=== PATIENT | female | born 1975 | race Caucasian/White ===

== ENCOUNTER 2018-08-30 05:37 | Day surgery (SDC) | payer OTHER ==
[~2018-08-30] VITALS: Ht 162.6 cm; Wt 88.0 kg
[~2018-08-30 05:37] MED LIST: NONE PER PT
[2018-08-30] MEDS ORDERED: LACTATED RINGERS 1,000 ML IV SCH ×2 (06:53→08:57)
[2018-08-30] MEDS ORDERED: METOCLOPRAMIDE 10MG TABLET PO ONE (07:00)
[2018-08-30] MEDS ORDERED: LIDOCAINE-MPF 1%, 2ML INFIL ONE (07:00)
[2018-08-30] MEDS ORDERED: FAMOTIDINE 20 MG TABLET PO ONE (07:00)
[2018-08-30] MEDS ORDERED: SCOPOLAMINE PATCH, 1.5MG PATCH.TD72 TD ONE (07:00)
[2018-08-30] MEDS ORDERED: GABAPENTIN 300 MG CAPSULE PO ONE (07:00)
[2018-08-30] MEDS ORDERED: ACETAMINOPHEN 500 MG TABLET PO ONE (07:00)
[2018-08-30 07:12] LABS: HCG UR SG 1.004 (1.003-1.030)
[2018-08-30] MEDS ORDERED: FENTANYL PF 250 MCG/5ML ONE (07:12)
[2018-08-30] MEDS ORDERED: MIDAZOLAM 1 MG/ML, 2ML ONE (07:12)
[2018-08-30] MEDS ORDERED: BUPIVACAINE 0.25% ONE (07:13)
[2018-08-30] MEDS ORDERED: EPINEPHRINE 1 MG/ML, 1ML ONE (07:13)
[2018-08-30] MEDS ORDERED: PROPOFOL 50 ML ONE (07:42)
[2018-08-30] MEDS ORDERED: OXYcodone 5 MG/5 ML ORAL.SOL UDC PO PRN (08:30)
[2018-08-30] MEDS ORDERED: ALBUTEROL SULFATE 2.5 MG/3 ML NPPB PRN (08:30)
[2018-08-30] MEDS ORDERED: SODIUM CHLORIDE 0.9% PF 10ML ONE (08:30)
[2018-08-30] MEDS ORDERED: PROMETHAZINE 25 MG/ML, 1ML IV PRN (08:30)
[2018-08-30] MEDS ORDERED: HYDROmorphone 2 MG/ML, 1ML IVPush PRN (08:30)
[2018-08-30] MEDS ORDERED: ROCURONIUM 10MG/ML,5ML ONE (08:30)
[2018-08-30] MEDS ORDERED: PROPOFOL 10 MG/ML, 20ML ONE ×2 (08:30)
[2018-08-30] MEDS ORDERED: LIDOCAINE-MPF 2% ,5ML ONE (08:30)
[2018-08-30] MEDS ORDERED: MEPERIDINE/PF 25MG/0.5ML IVPush PRN (08:30)
[2018-08-30] MEDS ORDERED: ONDANSETRON 2MG/ML, 2ML ONE (08:30)
[2018-08-30] MEDS ORDERED: DEXAMETHASONE 4 MG/ML, 1ML ONE ×2 (08:30)
[2018-08-30] MEDS ORDERED: CEFAZOLIN 1,000 MG ONE ×2 (08:31)
[2018-08-30] MEDS ORDERED: ONDANSETRON 2MG/ML, 2ML IVPush PRN (09:00)
[2018-08-30] MEDS ORDERED: HYDROcodone/APAP 5/325 TABLET PO PRN (09:00)
[2018-08-30] MEDS ORDERED: PROMETHAZINE 25 MG SUPP PR ONE (09:00)
[2018-08-30] MEDS ORDERED: IBUPROFEN 600 MG TABLET PO PRN (09:00)
[2018-08-30] MEDS ORDERED: FENTANYL PF 100 MCG/2ML ONE (09:18)
[2018-08-30] MEDS ORDERED: OXYcodone 5 MG/5 ML ORAL.SOL UDC ONE (09:18)
[2018-08-30] MEDS: FENTANYL PF 100 MCG/2ML IV PRN ×2 (09:20→09:24)
[2018-08-30] MEDS ORDERED: NEOSTIGMINE 1 MG/ML, 10ML ONE (15:49)
[2018-08-30] MEDS ORDERED: GLYCOPYRROLATE 0.2MG/1ML, 5ML ONE (15:49)
== END 2018-08-30 13:10 | disposition home or self-care (01) ==
LOC: OUT 05:37 → MERGE 07:30 → OUT 13:10
PROVIDERS: ATTEND Obstetrics & Gynecology Female Pelvic Medicine and Reconstructive Surgery
DX: N93.8 Other specified abnormal uterine and vaginal bleeding (principal); N94.6 Dysmenorrhea, unspecified; E66.9 Obesity, unspecified; Z68.33 Body mass index [BMI] 33.0-33.9, adult
CPT/HCPCS: 58571; 81025; 88307; J0171; J0690; J1100; J2250; J2405; J2704; J2710; J3010; J3490; J7120